=== PATIENT | female | born 1975 | race Caucasian/White ===

== ENCOUNTER 2020-11-08 07:41 | Day surgery (SDC) | payer MEDICAID, SELFPAY ==
[~2020-11-08] VITALS: Ht 154.9 cm; Wt 70.3 kg
[2020-11-08 08:34] LABS: HCG,QUAL RESULT NEGATIVE (NEGATIVE)
[2020-11-08] MEDS ORDERED: MEPERIDINE 100 MG INJ. 100 MG/ML VIAL ONE (08:51)
[2020-11-08] MEDS ORDERED: DIPHENHYDRAMINE INJ 50 MG/ML VIAL ONE (08:51)
[2020-11-08] MEDS ORDERED: fentaNYL CITRATE/PF 100 MCG/2 ML AMP ONE (08:58)
[2020-11-08] MEDS ORDERED: MIDAZOLAM HCL 5 MG/5 ML VIAL ONE (08:58)
[2020-11-08 12:50] VITALS: BP_SYST 132
== END 2020-11-08 10:25 | disposition home or self-care (01) ==
LOC: SDS 07:41 → SMU 07:43 → SDS 10:25
PROVIDERS: ATTEND Internal Medicine
DX: Z12.11 Encounter for screening for malignant neoplasm of colon (principal); K57.32 Diverticulitis of large intestine without perforation or abscess without bleeding; K64.8 Other hemorrhoids; I10 Essential (primary) hypertension; Z79.899 Other long term (current) drug therapy; Z20.822 Contact with and (suspected) exposure to COVID-19
CPT/HCPCS: 45380; 84703; 88305; 96365; 99152; 99153; G0378; J1200; J2175; J2250; U0003; J3010

== ENCOUNTER 2021-12-06 06:31 | Day surgery (SDC) | payer MEDICAID ==
[~2021-12-06] VITALS: Ht 152.4 cm; Wt 68.0 kg
[2021-12-06] MEDS ORDERED: fentaNYL CITRATE/PF 100 MCG/2 ML AMP ONE (07:29)
[2021-12-06] MEDS ORDERED: MIDAZOLAM HCL 5 MG/5 ML VIAL ONE (07:30)
[2021-12-06 08:00] LABS: HCG,QUAL RESULT NEGATIVE (NEGATIVE)
[2021-12-06 12:16] VITALS: BP_SYST 126
== END 2021-12-06 09:00 | disposition home or self-care (01) ==
LOC: SDS 06:31 → SMU 06:33 → SDS 09:00
PROVIDERS: ATTEND Internal Medicine
DX: Z12.11 Encounter for screening for malignant neoplasm of colon (principal); K57.30 Diverticulosis of large intestine without perforation or abscess without bleeding; K57.32 Diverticulitis of large intestine without perforation or abscess without bleeding; Z20.822 Contact with and (suspected) exposure to COVID-19; Z79.899 Other long term (current) drug therapy
CPT/HCPCS: 36415 ×2; 44388; 45330; 87426; 84703; 99152; U0003; G0378; J2250; J3010; 45378

== ENCOUNTER 2022-05-08 07:07 | Day surgery (SDC) | payer MEDICAID ==
[~2022-05-08] VITALS: Ht 152.4 cm; Wt 72.6 kg
[2022-05-08] MEDS ORDERED: SIMETHICONE 40 MG/0.6 ML ML ONE (07:30)
[2022-05-08] MEDS ORDERED: MIDAZOLAM HCL 5 MG/5 ML VIAL ONE (07:30)
[2022-05-08] MEDS ORDERED: fentaNYL CITRATE/PF 100 MCG/2 ML AMP ONE (07:30)
[2022-05-08 07:47] LABS: HCG,QUAL RESULT NEGATIVE (NEGATIVE)
[2022-05-08] MEDS ORDERED: DIPHENHYDRAMINE INJ 50 MG/ML VIAL ONE (09:01)
[2022-05-08 13:24] VITALS: BP_SYST 120
== END 2022-05-08 10:15 | disposition home or self-care (01) ==
LOC: SDS 07:07 → SMU 07:08 → SDS 10:15
PROVIDERS: ATTEND Internal Medicine
DX: Z09 Encounter for follow-up examination after completed treatment for conditions other than malignant neoplasm (principal); K57.90 Diverticulosis of intestine, part unspecified, without perforation or abscess without bleeding; Z20.822 Contact with and (suspected) exposure to COVID-19
CPT/HCPCS: 36415 ×2; 44388; 45330; 87426; 84703; U0003; G0378; J1200; J2250; J3010